=== PATIENT | male | born 1995 | race African-American/Black ===

== ENCOUNTER 2025-05-24 12:27 | Emergency (ER) | payer OTHER ==
[~2025-05-24] VITALS: Ht 172.7 cm; Wt 159.0 kg
[2025-05-24 12:37] VITALS: TEMP 97.3
--- NOTE | 2025-05-24 13:28 | Physician Documentation ---
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 Radiating pain down his leg denies any incontinence or fevers does report some mild numbness and tingling Medication Reconciliation Allergies: Coded Allergies: No Known Allergies (Unverified , 05/24/25) Review of Systems ROS As stated above in the HPI, otherwise all systems are reviewed and negative. Physical Exam Physical Exam Vital Signs: Temperature: 97.3, Source: Temporal, Heart Rate: 81, Respiratory Rate: 18, BP: 158/96, Pulse Oximetry: 96, Weight: 159.000 Physical Exam VITALS: Reviewed and as above. GENERAL: Alert, no apparent distress. HEENT: Normocephalic, atraumatic, PERRL, EOMI, dry mucosa, no erythema RESPIRATORY: Lungs clear, normal breath sounds, no respiratory distress. CHEST: No accessory muscle use, no retractions CV: Regular rate, rhythm, no edema, no murmur, No: JVD GI: Soft, non-tender, bowels sounds present, no rebound, guarding, or rigidity BACK: No CVA tenderness, or swelling MUSCULOSKELETAL No deformities, no edema, tenderness to the left lower lumbosacral region with palpation, positive straight leg on the right side reduced range of motion during examination. SKIN: Warm and dry, no rash NEURO: Oriented x4, No motor or sensory deficit PSYCH: Normal mood and affect, no agitation Progress Results/Orders Results/Orders Completed Orders - ZEHRA MCGILL Ketorolac Trometh 30mg/Ml Vial (Toradol (05/24/25 15:01) Methylprednisolone Sod Succ (Solumedrol (05/24/25 15:40) Medications Received in ER Medications (Trade) Dose Ordered Sig/Lizy Route PRN Reason Start Time Stop Time Status Last Admin Dose Admin (Toradol inj. 30mg/ml) 30 mg ONCE ONCE IM 05/24/25 15:01 05/24/25 15:02 DC 05/24/25 15:41 30 MG (SoluMEDROL 125mg inj) 125 mg ONCE ONCE IM 05/24/25 15:40 05/24/25 15:41 DC 05/24/25 15:50 125 MG Vital Signs 05/24/25 05/24/25 12:37 15:41 Temp 97.3 Pulse 81 Resp 18 16 B/P (MAP) 158/96 Pulse Ox 96 Medical Decision Making Additional info obtained from: other Findings This patient presents with back pain most consistent with lumbosacral sprain/sciatica. Differential diagnoses includes lumbago versus musculoskeletal spasm / strain versus sciatica. No back pain red flags on history or physical, no bowel or bladder incontinence no saddle anesthesia no numbness or tingling extremities. Presentation not consistent with malignancy (lack of history of malignancy, lack of B symptoms), fracture (no trauma, no bony tenderness to palpation), cauda equina (no bowel or urinary incontinence/retention, no saddle anesthesia, no distal weakness), AAA, viscus perforation, osteomyelitis or e pidural abscess (no IVDU, vertebral tenderness), renal colic, pyelonephritis (afebrile, no CVAT, no urinary symptoms). Given the clinical picture, no indication for imaging at this time. Patient given Toradol Solu-Medrol here in the emergency department with improvement. He will be prescribed 5 days of Flexeril to take at night before bed if he chooses. The patient follow up with his primary care provider. Patient will return to the emergency department if he has any worsening of his current symptoms or any additional concerning symptoms that we discussed here today i.e. increased pain difficulty walking bowel or bladder incontinence numbness of his perineal area numbness tingling to his extremities or any other concerns we discussed here today. Differential Dx:Considerations: Aortic dissection, , Pyelonephritis, Strain, Urolithiasis, Other Departure Disposition: HOME / SELF CARE / HOMELESS Impression: Primary Impression: Back problem Additional Impressions: Strain of thoracic region Lumbosacral strain Sciatica Discharge Instructions: Sciatica, Lumbosacral Strain Additional Instructions: This patient presents with back pain most consistent with lumbosacral sprain/sciatica. Differential diagnoses includes lumbago versus musculoskeletal spasm / strain versus sciatica. No back pain red flags on history or physical, no bowel or bladder incontinence no saddle anesthesia no numbness or tingling extremities. Presentation not consistent with malignancy (lack of history of malignancy, lack of B symptoms), fracture (no trauma, no bony tenderness to palpation), cauda equina (no bowel or urinary incontinence/retention, no saddle anesthesia, no distal weakness), AAA, viscus perforation, osteomyelitis or epid ural abscess (no IVDU, vertebral tenderness), renal colic, pyelonephritis (afebrile, no CVAT, no urinary symptoms). Given the clinical picture, no indication for imaging at this time. Patient given Toradol Solu-Medrol here in the emergency department with improvement. He will be prescribed 5 days of Flexeril to take at night before bed if he chooses. The patient follow up with his primary care provider. Patient will return to the emergency department if he has any worsening of his current symptoms or any additional concerning symptoms that we discussed here today i.e. increased pain difficulty walking bowel or bladder incontinence numbness of his perineal area numbness tingling to his extremities or any other concerns we discussed here today. Departure Forms: Excuse form Work or School Excused From: Work Excuse beginning now through the following date: May 26, 2025 May Return but still avoid physical Activity from now until: May 26, 2025 May Return to full physical activity as of: May 26, 2025 Additional Instructions: Patient needs to remain off of work until Saturday when he sees his primary care provider for a return to work clearance. Referrals: NO PRIMARY CARE PROVIDER (PCP) Prescriptions Cyclobenzaprine* (Cyclobenzaprine*) 10 Mg Tablet 1 TAB PO HS for 5 Days, #5 TAB Prov: ZEHRA MCGILL 05/24/25 Education Educated: Patient Educated regarding: diagnosis, treatment Signature Scribe Signature: a Attestation: Scribed for Zehra Mcgill by PATTIE Kim . 05/24/25 16:17 WHIT ROBERTS NP May 24, 2025 13:28 ZEHRA MCGILL May 24, 2025 16:09
[2025-05-24] MEDS ORDERED: ketorolac trometh 30MG/ML vial 30 MG/ML VIAL IM ONE ×2 (13:45→15:40)
--- NOTE | 2025-05-24 14:29 | RADIOLOGY REPORT ---
EXAM: DI LUMBAR SPINE LIMITED HISTORY: lower back pain COMPARISON: None TECHNIQUE: AP and lateral views of the lumbar spine and spot lateral of the lumbosacral junction were performed. FINDINGS: No fracture or listhesis of the lumbar spine. No significant degenerative changes. There is minimal lumbar dextroscoliosis. IMPRESSION: No fracture or significant degenerative changes of the lumbar spine.
[2025-05-24] MEDS: ketorolac trometh 30MG/ML vial 30 MG/ML VIAL IM ONE (15:41)
[2025-05-24 16:05] VITALS: BP 137/104; PULSE 71; RESP 16; O2SAT 98
[2025-05-24] MEDS ORDERED: CYCL-1 PO (16:12)
== END 2025-05-24 16:31 | disposition home or self-care (01) ==
LOC: ER 12:29
DX: S39.012A Strain of muscle, fascia and tendon of lower back, initial encounter (principal); S29.012A Strain of muscle and tendon of back wall of thorax, initial encounter; X58.XXXA Exposure to other specified factors, initial encounter; Y93.89 Activity, other specified; Y92.89 Other specified places as the place of occurrence of the external cause; Y99.8 Other external cause status
CPT/HCPCS: 72100; 96372; 99284; J1885; J2919